=== PATIENT | male | born 1970 | race Caucasian/White ===

== ENCOUNTER 2017-06-11 09:45 | Outpatient (CLI) ==
[2015-10-26 19:48] VITALS: BMI 29.7
[2017-06-11 10:22] LABS: BASOPHILS % (AUTO) 0.5 % (0.0-3.0); EOSINOPHILS # (AUTO) 0.1 K/ul (0.0-0.7); EOSINOPHILS % (AUTO) 1.6 % (0.0-7.0); HEMATOCRIT 43.8 % (42.0-52.0); HEMOGLOBIN 15.2 g/dl (14.0-18.0); IMMATURE GRANULOCYTE % (AUTO) 0.6 % (0.0-5.0); LYMPHOCYTES # (AUTO) 2.7 K/uL (0.60-3.4); LYMPHOCYTES % (AUTO) 33.3 (10.0-50.0); MEAN CORPUSCULAR HEMOGLOBIN 29.6 pg (27.0-31.0); MEAN CORPUSCULAR HGB CONC 34.7 (31.8-35.4); MEAN CORPUSCULAR VOLUME 85.4 fl (80.0-94.0); MONOCYTES # (AUTO) 0.6 K/uL (0.4-2.0); MONOCYTES % (AUTO) 7.2 (0-10); NEUTROPHILS # (AUTO) 4.6 K/ul (2.0-6.9); NEUTROPHILS % (AUTO) 56.8; PLATELET COUNT 275 10^3/uL (140-440); RED BLOOD COUNT 5.13 10^6/ul (4.70-6.10); WHITE BLOOD COUNT 8.11 K/ul (4.2-10.2)
--- NOTE | 2017-06-11 10:29 | DI ---
EXAM: Two views of the chest. History: Abnormal weight gain. Comparison: Chest radiograph 10/26/2015 Findings: Heart size is normal. No focal consolidation. No appreciable pleural fluid and no pneumot horax. No acute osseous abnormalities. Impression: No acute cardiopulmonary process
--- NOTE | 2017-06-11 10:30 | DI ---
EXAM: Four views of the right knee. History: Right knee pain. Findings: No acute fracture or dislocation. 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 Minimal patellar enthesiopathy. Joint spaces are relatively preserved. Impression: No acute osseous abnormality. Other findings as detailed above
--- NOTE | 2017-06-11 10:30 | DI ---
EXAM: Three views of the right foot. History: Right foot pain. Findings: No acute fracture or dislocation. Minimal calcaneal enthesiopathy. Joint spaces are pres erved. There is medial soft tissue prominence at the mid foot. Impression: No acute osseous abnormality. Other findings as detailed above
--- NOTE | 2017-06-11 10:31 | DI ---
EXAM: Three views of the left foot. History: Left foot pain. Findings: No acute fracture or dislocation. Joint spaces are relatively preserved. No abnormal cara cifications or radiopaque foreign bodies. Minimal calcaneal enthesiopathy Impression: No acute osseous abnormality
--- NOTE | 2017-06-11 10:34 | DI ---
EXAM: Five views of the lumbar spine. History: Lower back pain and radiculopathy. Findings: No acute fracture or subluxation of the lumbar spine. Mild multilevel degenerative disc s pace narrowing with a few prominent anterior osteophytes. Surgical clips seen projecting over the ri ght iliac bone. Impression: 1. No acute osseous abnormality. 2. Mild degenerative disc disease
[2017-06-11 10:50] LABS: ERYTHROCYTE SEDIMENTATION RATE 10 mm/hr (0-15); ESR INTERNAL QC INTERNAL QC VALID
[2017-06-11 12:23] LABS: ALBUMIN 3.7 g/dL (3.4-5.0); ALBUMIN/GLOBULIN RATIO 0.93; ANION GAP 16.1; BILIRUBIN,TOTAL 0.63 mg/dL (0.00-1.20); BUN/CREATININE RATIO 20.4; CALCIUM 9.2 mg/dL (8.2-10.2); CHOL/HDL RATIO 5.1 (4.5-6.4); CREATININE 0.98 mg/dL (0.60-1.10); POTASSIUM 4.1 mmol/L (3.5-5.1); TOTAL PROTEIN 7.7 g/dL (6.4-8.2)
== END 2017-06-11 09:46 | disposition home or self-care (01) ==
LOC: RAD 09:45
PROVIDERS: ATTEND Nurse Practitioner Family
DX: G47.00 Insomnia, unspecified (principal); R63.5 Abnormal weight gain; M79.672 Pain in left foot; M79.671 Pain in right foot; M54.17 Radiculopathy, lumbosacral region; M25.561 Pain in right knee; Z87.898 Personal history of other specified conditions
CPT/HCPCS: 36415; 80053; 80061; 84439; 84443; 85025; 85651; 86140; 93005; 93010

== ENCOUNTER 2017-06-13 10:58 | Observation (INO) ==
[2017-06-13] MEDS ORDERED: MORPHINE 2 MG/ML SYRINGE IVP STA (11:08)
[2017-06-13] MEDS ORDERED: ZOFRAN 4 MG/2 ML IVP STA (11:08)
--- NOTE | 2017-06-13 11:10 | ED.PDOC ---
General ED Provider: Dr. CON HERNANDEZ JR Chief Complaint: Non-specific Complaint Stated Complaint: PATIENT STATES THAT HE HAS BEEN EXPERIENCING HYPERTENSION AND WAS SEEN BY HIS PCP. PATIENT WAS GIVEN LISINOPRIL, AND SINCE BEGINNING THE MEDICATION HE HAS HAD SEVERE LEFT ARM PAIN AND FACIAL TINGLING[End]2 days 97.3 77 20 98% 154/102 10/10 ARM PAIN AND FACIAL NUMBNESS[ End ] Time Seen by Physician: 11:10 Mode of Arrival: Walk-In Information Source: Patient Exam Limitations: No limitations Primary Care Provider: [facility] Nursing and Triage Documentation Reviewed and Agree: No Review of Systems - Review Of Systems Constitutional: Reports: Malaise Eyes: Reports: No symptoms Ears, Nose, Mouth, Throat: Reports: No symptoms Respiratory: Reports: No symptoms Cardiac: Reports: Chest pain GI: Reports: No symptoms : Reports: No symptoms Musculoskeletal: Reports: Muscle pain Neurological: Reports: Tingling, Weakness Endocrine: Reports: No symptoms Hematologic/Lymphatic: Reports: No symptoms All Other Systems: Other Past Medical History - Past Medical History Endocrine: Reports: None Cardiovascular: Reports: Hypertension Respiratory: Reports: None Hematological: Reports: None Gastrointestinal: Reports: None Genitourinary: Reports: None Neuro/Psych: Reports: None Musculoskeletal: Reports: None Cancer: Reports: None - Surgical History General Surgical History: Reports: Appendectomy, Orthopedic (RIGHT KNEE) - Family History Family History: Reports: Unknown - Social History Smoking Status: Former smoker Hx Substance Use: No Alcohol Screening: Occasionally - Immunizations Tetanus Shot up to Date: Yes Physical Exam - Physical Exam Appearance: Well-appearing Pain Distress: Mild Eyes: ROLY, EOMI, Conjunctiva clear ENT: Ears normal, Nose normal, Oropharynx normal Neck: Supple Respiratory: Airway patent, Breath sounds clear, Breath sounds equal, Respirations nonlabored Cardiovascular: RRR, Pulses normal, No rub, No murmur GI/: Soft, Nontender, No masses, Bowel sounds normal, No Organomegaly Musculoskeletal: Normal strength, ROM intact, No edema, No calf tenderness Skin: Warm, Dry, Normal color Neurological: Sensation intact, Motor intact, Reflexes intact, Cranial nerves intact, Alert, Oriented Psychiatric: Affect appropriate, Mood appropriate Interpretation - Radiology Interpretation Radiology Interpretation By: Radiologist Radiology Results: Negative Exam Interpreted: CXR Critical Care Note - Critical Care Note Total Time (mins): 10 Course - Course Hematology/Chemistry: 06/13/17 11:25 06/13/17 11:25 Orders, Labs, Meds: Lab Review 06/13/17 06/13/17 06/13/17 11:25 11:25 11:25 WBC 6.59 RBC 4.93 Hgb 14.5 Hct 42.7 MCV 86.6 MCH 29.4 MCHC 34.0 RDW Coeff of [place] 14.0 Plt Count 236 Immature Gran % (Auto) 0.6 Neut % (Auto) 52.1 Lymph % (Auto) 36.4 [place] % (Auto) 8.2 Eos % (Auto) 2.1 Baso % (Auto) 0.6 Immature Gran # (Auto) 0.0 Neut # 3.4 Lymph # 2.4 [place] # 0.5 Eos # 0.1 Baso # 0.0 Sodium 140 Potassium 4.2 Chloride 106 Carbon Dioxide 24 Anion Gap 14.2 BUN 15 Creatinine 0.95 Estimated GFR (MDRD) 85.00 BUN/Creatinine Ratio 15.78 Glucose 98 Calcium 8.7 Total Bilirubin 0.42 AST 24 ALT 37 Alkaline Phosphatase 81 Total Creatine Kinase 102 Troponin I < 0.0100 B-Natriuretic Peptide < 10 Total Protein 7.1 Albumin 3.3 L Globulin 3.8 Albumin/Globulin Ratio 0.87 Orders Category Date Time Status EKG-(ED ONLY) Stat CARDIO 06/13/17 11:09 Completed ED IV/MEDIPORT/POWERPORT .ONCE EMERGENCY 06/13/17 11:08 Active B-TYPE NATRIURETIC PEPTIDE Stat LAB 06/13/17 11:25 Completed CBC W/ AUTO DIFF Stat LAB 06/13/17 11:25 Completed COMPREHENSIVE METABOLIC PANEL Stat LAB 06/13/17 11:25 Completed CREATINE KINASE Stat LAB 06/13/17 11:25 Completed TROPONIN I Stat LAB 06/13/17 11:25 Completed 0.9 % Sodium Chloride [Saline Flush] MEDS 06/13/17 11:08 Active 1 syr IVF PRN PRN Morphine Sulfate [Morphine 2 mg/ml Syringe] MEDS 06/13/17 11:08 Discontinued 2 mg IVP ONCE STA Ondansetron HCl/Pf [Zofran 4 mg/2 ml] MEDS 06/13/17 11:08 Discontinued 4 mg IVP ONCE STA CHEST, 1V AP ONLY Stat RADS 06/13/17 11:[address] HEAD W/O CONTRAST Stat RADS 06/13/17 11:08 Completed Medications Generic Name Dose Route Start Last Admin Trade Name Freq PRN Reason Stop Dose Admin Sodium Chloride 1 syr 06/13/17 11:08 06/13/17 11:45 Saline Flush IVF 1 syr PRN PRN Administration To flush IV Discontinued Medications Generic Name Dose Route Start Last Admin Trade Name Freq PRN Reason Stop Dose Admin Morphine Sulfate 2 mg 06/13/17 11:08 06/13/17 11:39 Morphine 2 Mg/Ml Syringe IVP 06/13/17 11:09 2 mg ONCE STA Administration Ondansetron HCl 4 mg 06/13/17 11:08 06/13/17 11:42 Zofran 4 Mg/2 Ml IVP 06/13/17 11:09 4 mg ONCE STA Administration Vital Signs: Temp Pulse Resp BP Pulse Ox 06/13/17 10:59 97.3 F L 77 20 154/102 H 98 Departure - Departure Time of Disposition: 13:37 Disposition: PLACED OBSERVATION Discharge Problem: Mid sternal chest pain, Anxiety Condition: Good Pt referred to PMD for follow-up: Yes Allergies/Adverse Reactions: Allergies Penicillins Allergy (Unknown, Unverified 06/13/17 11:02) Unknown
--- NOTE | 2017-06-13 12:05 | DI ---
EXAM: Single view of the chest. History: Chest pain. Comparison: Chest radiograph 06/11/2017 Findings: Heart size is normal. No focal consolidation. No appreciable pleural fluid and no pneumo thorax. No acute osseous abnormalities. Calcified granuloma again seen within the left lower lobe. Impression: No acute cardiopulmonary process
--- NOTE | 2017-06-13 12:43 | CT ---
EXAM: CT head without contrast HISTORY: headache COMPARISON: None TECHNIQUE: Serial axial images of the brain were obtained from the skull base to the vertex without IV contrast. FINDINGS: The ventricles, cisterns and sulci are normal. The bermudez-white matter junction is well carl ntained. No midline shift or mass is identified. There is no abnormal intra or extra-axial fluid co llection. The paranasal sinuses and mastoid air cells are clear. The osseous calvarium is intact. IMPRESSION: No acute intracranial abnormality or hemorrhage. If further evaluation is clinically in dicated, MRI may be obtained.
[2017-06-13] MEDS ORDERED: TYLENOL PO PRN (13:39)
[2017-06-13] MEDS ORDERED: FLEXERIL PO PRN (13:41)
[2017-06-13] MEDS ORDERED: SODIUM CHLORIDE 1,000 ML IV SCH (14:00)
[2017-06-13 14:01] VITALS: BMI 32.2
[2017-06-13] MEDS: TOPROL XL PO SCH (16:28)
[2017-06-13] MEDS: LIBRIUM PO SCH (16:29)
[2017-06-13] MEDS: NEURONTIN PO SCH (20:16)
[2017-06-13] MEDS ORDERED: XANAX PO SCH (21:00)
[2017-06-13] MEDS ORDERED: VISTARIL PO SCH (21:00)
[2017-06-13] MEDS ORDERED: HYDROXYZINE PAMOATE 50 MG PO SCH (21:00)
[2017-06-14 06:15] VITALS: BP 124/86; TEMP 98.1
[2017-06-14] MEDS ORDERED: ZESTRIL PO SCH (09:00)
[2017-06-14] MEDS: NEURONTIN PO SCH (09:11)
[2017-06-14] MEDS: TOPROL XL PO SCH (09:11)
[2017-06-14] MEDS: LIBRIUM PO SCH (09:13)
[2017-06-14] MEDS ORDERED: XANAX PO SCH (21:00)
--- NOTE | 2017-06-19 14:58 | HP ---
DATE OF SERVICE: 06/13/17 CHIEF COMPLAINT: Chest pain HISTORY OF PRESENT ILLNESS: This is a 47 year old male who came to the emergency room with the left sided chest tightness. He has been going through a lot of stress. Says that he is and has custody of kids, job isn't going good so getting stressed out so started having midsternal chest pain going to the left arm and left side of the jaw. Came to the emergency room. In the emergency room blood pressure was 154/102 and that time the patient being admitted to the hospital for chest pain and rule out ACS. REVIEW OF SYSTEMS: CONSTITUTIONAL: No fever, no chills. HEENT: Normal. ENDOCRINE: No weight gain; no weight loss. CVS: Left sided chest pain. Tingling in left side of the face. No PND, no orthopnea. No shortness of breath. No PND, no orthopnea. RESPIRATORY: No cough, no congestion. No hemoptysis. GI: No nausea, no vomiting. No abdominal pain. No melena. : No hematuria. No polyuria. MUSCULOSKELETAL: No joint swelling. PSYCHIATRIC: Anxious.Stress out. No depression. No suicidal thoughts. No homicidal thoughts. SKIN: Intact, no open lesions. PAST MEDICAL HISTORY: Hypertension Dyslipidemia Osteoarthritis DJD spine GERD PAST SURGICAL HISTORY: Appendectomy Right knee scope PERSONAL HISTORY: The patient does smoke but does not drink alcohol. Family history is significant for hypertension. MEDICATIONS: Tylenol Zestril Neurontin Vistaril Flexeril Saline flush ALLERGIES: Penicillin PHYSICAL EXAMINATION: V/S: Blood pressure 150/102, respiratory rate 20, heart rate 77 and temperature 97.2 with saturation 98%. HEENT: Atraumatic, normocephalic. No scleral icterus. Pallor . Mucosa . NECK: Supple. No JVD, no bruit. No lymphadenopathy. No thyromegaly. HEART: S1, S2 normal. No murmur. No cyanosis or clubbing. No ascites. LUNGS: Clear to auscultation. No rales or rhonchi. ABDOMEN: Soft, nontender. Bowel sounds are active. No CVA tenderness. No rigidity or guarding. EXTREMITIES: No cyanosis, clubbing or pedal edema. MUSCULOSKELETAL: Normal joints, no swelling. NEUROLOGIC: The patient is SKIN: Intact; no open lesions. LYMPHATIC: No lymph nodes palpable. LABS: WBC 6.59, hgb 14.5, hct 42.7,. plt count 236, sodium 141, potassium 4.2, chloride 106, bicarb 24, BUN 15, creatinine 0.95, glucose 98. First set of cardiac enzymes are negative. BNP is negative. ASSESSMENT: 1. Chest pain rule out ACS 2. Hypertension, uncontrolled 3. Dyslipidemia 4. Anxiety 5. Osteoarthritis PLAN: 1. Admit the patient to the observation for chest pain 2. TSH and Lipids 3. Cardiology consult with Dr. Julian 4. Librium 25mg twice a day 5. Ativan 1mg IV push for night for the sleep TIME SPENT: MORE THAN 55 minutes MTDD
--- NOTE | 2017-08-02 13:55 | DS ---
DATE OF SERVICE: 06/14/17 FINAL DIAGNOSIS: 1. HYPERTENSION, UNCONTROLLED 2. STATUS POST PANIC ATTACK 3. MIDSTERNAL CHEST PAIN 4. ANXIETY, MOSTLY WORSE LATELY BECAUSE OF FAMILY ISSUES 5. MILD DJD DISC DISEASE, L SPINE 6. APPENDECTOMY 7. FORMER SMOKER 8. OCCASIONAL ALCOHOL 9. DYSLIPIDEMIA DISCHARGE INSTRUCTIONS: 1. Follow up at the [facility] on 06/18/2017. 2. Resume home medications. 3. Do not take your Hydroxyzine or Lisinopril. 4. New medications: Librium 25 mg twice a day Metoprolol Succinate once a day 5. Get plenty of rest. 6. Diet: Low carb diet. High protein diet. 7. Activity: As much as tolerated. DISEASE SPECIFIC EDUCATION: Anxiety attacks, hypertension and risk of stroke have been discussed and he verbalized understanding. HOSPITAL COURSE: Cornelius Guillory, who is a 47 year old male, came to the emergency room for hypertension, which was uncontrolled. Left arm and left facial tingling. He came to the emergency room and his blood pressure was 154/ 102. EKG was normal sinus rhythm. LISA score was one. Because of uncontrolled hypertension, CT of the head was done, which was negative for the stroke. Chest x-ray was negative. He was admitted to the hospital for uncontrolled hypertension. He was started on Librium. Morphine was given for some pain. Continued the Neurontin 100 mg twice daily. IV fluids. Metoprolol succinate 25 mg daily. With the given treatment, the patient was feeling better. Blood pressure came down to 121/81 and 111/72. He was up and about walking. Three sets of cardiac enzymes were negative. The patient's mother was in the hospital with the patient. She was telling that the patient has been going through a lot of stress because of the children, the family and divorce and separation with the . The patient has not been taking care of himself properly. The episode was treated as uncontrolled hypertension and panic attack. Meanwhile, the patient is up and about walking and did not have any problems with the Metoprolol twice a day the blood pressure was controlled good. The patient was advised to continue the same medication. Metoprolol succinate 25 mg daily and Neurontin 100 mg twice daily, which was continued. Keep checking the blood pressure. Risk of stroke was discussed and he verbalized understanding. TIME SPENT: MORE THAN 65 MINUTES MTDD
== END 2017-06-14 09:40 | disposition home or self-care (01) ==
LOC: ED 10:58 → MEDSURG B 13:13
PROVIDERS: ADMIT Emergency Medicine; ATTEND Emergency Medicine
DX: I10 Essential (primary) hypertension (principal); R07.89 Other chest pain; F41.9 Anxiety disorder, unspecified; F43.9 Reaction to severe stress, unspecified; R20.2 Paresthesia of skin; F41.0 Panic disorder [episodic paroxysmal anxiety]; M47.896 Other spondylosis, lumbar region; E78.5 Hyperlipidemia, unspecified; Z87.891 Personal history of nicotine dependence; Z72.89 Other problems related to lifestyle; Z79.899 Other long term (current) drug therapy
CPT/HCPCS: 36415; 80053; 82550; 83880; 84484; 85025; 93005; 93010; 96375; 99285

== ENCOUNTER 2017-07-11 11:23 | Outpatient (CLI) ==
--- NOTE | 2017-07-11 11:46 | DI ---
EXAM: Right elbow three-view HISTORY: Pain in right elbow COMPARISON: None FINDINGS: No fracture or dislocation. The alignment is normal. No joint effusion. Moderate to bulky olecranon enthesopathy. IMPRESSION: 1. No fracture or dislocation. 2. Moderate to bulky olecranon enthesopathy.
== END 2017-07-11 11:24 | disposition home or self-care (01) ==
LOC: RAD 11:23
PROVIDERS: ATTEND Nurse Practitioner Family
DX: M25.521 Pain in right elbow (principal)

== ENCOUNTER 2017-07-12 12:14 | Outpatient (CLI) ==
--- NOTE | 2017-07-12 13:33 | MRI ---
EXAM: MRI lumbar spine without IV contrast. DATE: 12 July 2017. HISTORY: Lumbar degenerative disc disease. TECHNIQUE: Sagittal and axial T1W and T2W sequences of the lumbar spine along with sagittal IR and c oronal T2W sequences were obtained using 1.2 Jackelin magnet. No IV contrast. COMPARISON: LS spine series 11 June 2017. PA/lateral chest 11 June 2017. FINDINGS: There are five [id number] lumbar vertebra. No lumbar scoliosis is evident. A 2.2 mm anterior subluxation of S1 relative to L5 is noted. No other subluxation, acute fracture, osseous m alignancy, or pars interarticularis defect is demonstrated. Lumbar vertebra are normal in height. M inor anterior wedge configuration of the T12 vertebral body is chronic and may be a normal variation. Bone marrow signal is normal. Prominent anterior osteophytes seen at L3-4. Minor disc space narro wing is detected at L4-5. Remaining intervertebral discs are normal in height. No sacral fracture o r stress reaction is identified. SI joints are grossly normal. Conus medullaris terminates at L1-2. Visible spinal cord is normal. No retroperitoneal lymphadenopathy, paraspinal mass, or aortic aneurysm is detected. Paraspinal musc ulature is symmetric bilaterally. Visible portions of the liver, spleen, adrenal glands and right ki dney reveal no abnormality. A T2W bright, T1W dark, 4 mm focus in the posteromedial cortex upper alex e left kidney is likely a benign cyst, but is too small to fully characterize. Segmental analysis: T12-L1: Normal. L1-2: Normal. L2-3: Normal. L3-4: Normal. L4-5: Normal, except for minor bilateral inferior foraminal encroachment due to minor facet arthropa thy. L5-S1: Minor anterior subluxation of S1, tiny pseudodisc bulge, and minimal facet disease cause mild right and slight left foraminal narrowing. Each L5 nerve root appears to contact the disc bulge alta r the lateral margin of the foramen. No central canal stenosis. IMPRESSIONS: 1. Lumbar spine mild spondylosis, minor facet arthropathy, and minor DDD 2. L5-S1 mild right and minor left foraminal narrowing, with each L5 nerve root contacting the disc bulge near its foramen - - may be a source for pain/radiculopathy. 3. No lumbar spine central canal stenosis 4. Left kidney probable benign cyst (4 mm).
== END 2017-07-12 12:15 | disposition home or self-care (01) ==
LOC: RAD 12:14
PROVIDERS: ATTEND Nurse Practitioner Family
DX: M51.36 Other intervertebral disc degeneration, lumbar region (principal)

== ENCOUNTER 2017-07-15 09:04 | Outpatient (CLI) ==
--- NOTE | 2017-07-15 10:56 | MRI ---
EXAM: MRI right knee without contrast COMPARISON: Right knee radiographs 06/11/2017. HISTORY: Acute right knee pain. Old injury. Previous arthroscopic surgery. TECHNIQUE: Multiplanar noncontrast MR images of the right knee were acquired using a 1.2 Jackelin magne t. FINDINGS: The medial and lateral menisci are intact without identification of a surfacing meniscal t ear. No parameniscal cyst. Inversion recovery hyperintense signal throughout the substance of the anterior cruciate ligament tho ugh intact fibers are identified suggesting mucoid degeneration versus sequela of a sprain/partial te ar. Intact ligament fibers are identified. 1.5 x 0.8 x 0.6 cm T2 hyperintense focus along the poste rior aspect of the intercondylar notch suggesting a ganglion/synovial cyst. The posterior cruciate l igament Is intact. Medial collateral ligament, lateral collateral ligament complex and posterolatera l corner ligaments are intact. Moderately severe distal quadriceps tendinosis with a 6 mm superior p atellar spur. Moderately severe distal patellar tendinosis. 1.6 x 0.7 cm well corticated ossificati on of the tibial tuberosity attachment of the patellar tendon related to a chronic sequela of Dante- Schlatter's disease versus sequela of an old avulsion fracture. Secondary degenerative changes betwe en the ossification and proximal tibia with marrow edema throughout the ossicle which may represent r eactive edema/stress reaction or contusion. There is edema throughout the anterior subcutaneous tiss ues without a drainable fluid collection. Chondromalacia patella. No full-thickness cartilage defect. No evidence of an acute fracture or ost eomyelitis. Minimal joint effusion. Slit-like popliteal cyst. No osteochondral body or soft tissue mass identified. IMPRESSION: 1. Moderately severe patellar/quadriceps tendinosis and enthesopathy. Well corticated ossification along the tibial tuberosity attachment of the patellar tendon suggesting chronic sequela of Dante-Sc hlatter's disease versus sequela of an old avulsion injury. There are secondary degenerative changes between the ossicle and proximal tibia as well as marrow edema throughout the ossification which may represent reactive edema/stress reaction or contusion without acute fracture. There is subcutaneous edema throughout the overlying soft tissues without a drainable fluid collection. Correlate with si te of pain. 2. Intact menisci. 3. Mucoid degeneration versus sequela of previous sprain/partial tear of the anterior cruciate ligam ent with intact ligament fibers clearly identified. 4. Chondromalacia patella. 5. Minimal joint effusion. Slit-like popliteal cyst.
== END 2017-07-15 09:05 | disposition home or self-care (01) ==
LOC: RAD 09:04
PROVIDERS: ATTEND Nurse Practitioner Family
DX: M25.561 Pain in right knee (principal)

== ENCOUNTER 2017-09-16 16:21 | Outpatient (CLI) | END 2017-09-16 16:22 | disposition home or self-care (01) | LOC: FCC-LAB 16:21 | PROVIDERS: ATTEND Nurse Practitioner Family | DX: F41.9 Anxiety disorder, unspecified (principal); I10 Essential (primary) hypertension; Z79.899 Other long term (current) drug therapy | CPT/HCPCS: 36415; 80053; 80306; 81001; 85025 ==

== ENCOUNTER 2017-10-17 08:46 | Outpatient (CLI) | END 2017-10-17 08:47 | disposition home or self-care (01) | LOC: LAB 08:46 | PROVIDERS: ATTEND Physical Medicine & Rehabilitation | DX: L40.50 Arthropathic psoriasis, unspecified (principal) | CPT/HCPCS: 36415; 80053; 82306; 84443; 85025; 85651; 86038; 86430 ==

== ENCOUNTER 2017-12-12 10:06 | Outpatient (CLI) | END 2017-12-12 10:07 | disposition home or self-care (01) | LOC: FCC-LAB 10:06 | PROVIDERS: ATTEND Nurse Practitioner Family | DX: E75.6 Lipid storage disorder, unspecified (principal); I10 Essential (primary) hypertension | CPT/HCPCS: 36415; 80053; 80061 ==

== ENCOUNTER 2017-12-25 08:38 | Outpatient (CLI) | payer OTHER ==
--- NOTE | 2017-12-25 11:22 | US ---
Exam: Jara-scale and color ultrasonographic evaluation of the kidneys and urinary bladder. Comparison: None available. Reason for exam: Primary hypertension. FINDINGS: The right kidney measures approximately 9.5 x 4.5 x 4.2 cm with normal appearing echotextu re, no hydronephrosis, and no nephrolithiasis. The left kidney measures approximately 11.6 x 4.7 x 4.5 cm without hydronephrosis or nephrolithiasis. In the midportion of the left kidney there is a solid appearing 1.8 x 1.7 x 2.8 cm area of heterogene ous appearing cortex versus parenchymal nodularity with internal vascularity. The bladder appears grossly unremarkable although evaluation is limited by non distension. Ureteral jets were not seen on the exam. Impression: Heterogeneous appearing cortex in the left mid kidney versus a 2.8 cm parenchymal nodule. Imaging fi ndings can be seen with lobulated parenchyma and neoplasia. Further evaluation is recommended. Report faxed at [phone] hours on 12/25/2017.
== END 2017-12-25 08:39 | disposition home or self-care (01) ==
LOC: RAD 08:38
PROVIDERS: ATTEND Nurse Practitioner Family
DX: I10 Essential (primary) hypertension (principal)
CPT/HCPCS: 76770

== ENCOUNTER 2018-01-02 09:06 | Emergency (ER) ==
[2018-01-02 09:18] VITALS: BP 139/94; TEMP 97.7; BMI 33.3
--- NOTE | 2018-01-02 09:53 | ED.PDOC ---
General ED Provider: Dr. BURTON NINA Chief Complaint: Elbow Pain/Injury Stated Complaint: Elbow pain. States has noted a justina prominence on Rt Elbow for some time and last evening was in bed, resting on side and when attempting to turn over, lifted self on elbow, felt popping sensation associated with severe pain. Awakended this morning and elbow was painful plus hand felt cool. Time Seen by Physician: 09:20 Mode of Arrival: Walk-In Information Source: Patient, Family Exam Limitations: No limitations [facility] and Triage Documentation Reviewed and Agree: Yes Does patient meet sepsis criteria?: No System Inflammatory Response Syndrome: Not Applicable Sepsis Protocol: For patient's 13 years and over: Temp is 96.8 and below OR 101 and greater Pulse >90 BPM Resp >20/minute Acutely Altered Mental Status Are patient's symptoms suggestive of a new infection, such as: -Pneumonia -Skin, Soft Tissue -Endocarditis -UTI -Bone, Joint Infection -Implantable Device -Acute Abdominal Infection -Wound Infection -Meningitis -Blood Stream Catheter Infection -Unknown Musculoskeletal Complaint Exam - Elbow Pain Complaint/Exam Mechanism of Injury: Reports: No known trauma Onset/Duration: 12 hrs Symptoms Are: Still present Onset of Pain: Reports: Immediate Initial Severity: Moderate Current Severity: Mild Location: Reports: Discrete Character: Reports: Sharp, Aching, Stiffness Alleviating: Reports: Rest Aggravating: Reports: Movement, Twisting, Pulling Associated Signs and Symptoms: Reports: Swelling Related History: Reports: Similar episode Related Surgical History: Reports: None Elbow Findings: Present: Swelling (minimal, tenderness over posterior olecranon) . Absent: Abnormal contour, Rotation, Ligamentous instability, Laceration, Warmth, Other joint pain Tenderness: Present: Olecranon Limited Range of Motion: Present: Extension (minimal restricted to passive full rom, active ROM complete) Differential Diagnoses: Joint Effusion, Strain, Bursitis Review of Systems - Review Of Systems Constitutional: Reports: No symptoms Eyes: Reports: No symptoms Ears, Nose, Mouth, Throat: Reports: No symptoms Respiratory: Reports: No symptoms Cardiac: Reports: No symptoms GI: Reports: No symptoms : Reports: No symptoms Musculoskeletal: Reports: No symptoms, Joint pain Skin: Reports: No symptoms Neurological: Reports: No symptoms Endocrine: Reports: No symptoms Hematologic/Lymphatic: Reports: No symptoms All Other Systems: Reviewed and Negative Past Medical History - Past Medical History Endocrine: Reports: None Cardiovascular: Reports: Hypertension Respiratory: Reports: None Hematological: Reports: None Gastrointestinal: Reports: None Genitourinary: Reports: None Neuro/Psych: Reports: None Musculoskeletal: Reports: None Cancer: Reports: None - Surgical History General Surgical History: Reports: Appendectomy, Orthopedic (RIGHT KNEE) - Family History Family History: Reports: Unknown - Social History Smoking Status: Former smoker Hx Substance Use: No Alcohol Screening: Occasionally - Immunizations Tetanus Shot up to Date: Yes Physical Exam - Physical Exam Appearance: Well-appearing Ill-appearing: None Pain Distress: Mild Eyes: ROLY, EOMI, Conjunctiva clear ENT: Ears normal, Nose normal, Oropharynx normal Respiratory: Airway patent, Breath sounds clear, Breath sounds equal, Respirations nonlabored Cardiovascular: RRR, Pulses normal, No rub, No murmur GI/: Soft, Nontender, No masses, Bowel sounds normal, No Organomegaly Musculoskeletal: Normal strength, Limited ROM, Limited strength, Edema (minimal over olecranon-lat epicondylar region ) Neurological: Sensation intact, Motor intact, Cranial nerves intact, Alert, Oriented, Alert to verbal Psychiatric: Affect appropriate, Mood appropriate, Anxious Interpretation - Radiology Interpretation Radiology Interpretation By: Radiologist Radiology Results: No acute changes Exam Interpreted: CT Scan, Other (No fracture) Critical Care Note - Critical Care Note Total Time (mins): 0 Course - Course Orders, Labs, Meds: Orders Category Date Time Status Ketorolac Tromethamine [Toradol] MEDS 01/02/18 11:10 Discontinued 30 mg IM ONCE STA CT ELBOW RIGHT WO CONTRAST Stat RADS 01/02/18 09:47 Completed Medications Discontinued Medications Generic Name Dose Route Start Last Admin Trade Name Freq PRN Reason Stop Dose Admin Ketorolac Tromethamine 30 mg 01/02/18 11:10 Toradol IM 01/02/18 11:11 ONCE STA Vital Signs: Temp Pulse Resp BP Pulse Ox 01/02/18 09:12 97.7 F 125 H 18 139/94 H 96 Departure - Departure Time of Disposition: 11:25 Disposition: HOME SELF-CARE Discharge Problem: Elbow contusion, Strain of elbow and forearm Instructions: Elbow Sprain (ED) Condition: Good Pt referred to PMD for follow-up: Yes (See social security specialist in next week ) IPMP verified?: No Additional Instructions: Geovani wrap SLing to reduce discomfort Early mobilization Ice pack or massage for 20 minutes 3 times daily If symptoms worsen return to ER Allergies/Adverse Reactions: Allergies Penicillins Allergy (Unknown, Verified 01/02/18 11:21) Unknown Home Medications: Ambulatory Orders Cyclobenzaprine HCl 10 mg PO BID 12/12/17 Hydrocodone/Acetaminophen [[place] 5-325 Tablet] 1 each PO BID 12/12/17 Ketorolac Tromethamine [Toradol] 10 mg PO Q6H PRN #20 tablet 01/02/18 Disposition Discussed With: Patient, Family
--- NOTE | 2018-01-02 10:38 | CT ---
EXAM: CT right elbow without contrast HISTORY: Pain and swelling after feeling a pop. COMPARISON: Right elbow x-ray 07/11/2017 TECHNIQUE: Serial axial images of the right elbow were performed without contrast. These were viewe d in multiple planes. FINDINGS: The humerus, radius and ulna demonstrate no cortical irregularity or displaced fracture. J oint spaces are maintained. There is normal articulation of the radial head and the capitellum. The re is an osteophyte of the olecranon. There is no lytic or blastic lesion. The musculature is normal . There is subcutaneous ground-glass overlying the region of the olecranon osteophyte. There is no effusion. IMPRESSION: 1. No displaced fracture or dislocation of the right elbow. 2. Osteophyte of the olecranon. 3. Nonspecific subcutaneous ground-glass overlying the olecranon that may represent post traumatic v ersus nonspecific inflammation versus edema.
[2018-01-02] MEDS ORDERED: TORADOL IM STA (11:10)
== END 2018-01-02 11:50 | disposition home or self-care (01) ==
LOC: ED 09:06
DX: S50.01XA Contusion of right elbow, initial encounter (principal); S56.912A Strain of unspecified muscles, fascia and tendons at forearm level, left arm, initial encounter; X50.1XXA Overexertion from prolonged static or awkward postures, initial encounter
CPT/HCPCS: 96372; 99282

== ENCOUNTER 2018-07-21 13:01 | Emergency (ER) | payer MEDICAID, OTHER ==
[2018-07-21 13:22] VITALS: BP 157/119; TEMP 97.3; BMI 38.7
[2018-07-21] MEDS ORDERED: XANAX PO STA (13:36)
--- NOTE | 2018-07-21 13:44 | DI ---
EXAM: Single view of the chest. History: Chest pain. Comparison: Chest radiograph 06/13/2017 Findings: Heart size is within normal limits. No focal consolidation. No appreciable pleural fluid and no pneumothorax. No acute osseous abnormalities. Calcified granulomas are again seen within th e thorax. Impression: No acute cardiopulmonary process
--- NOTE | 2018-07-21 14:19 | CT ---
EXAM: CT of the left hand without contrast History: Left hand and thumb pain. Technique: Multiplanar CT images through the left hand were obtained without the administration of I V contrast Findings: No acute fracture or dislocation. No abnormal calcifications or radiopaque foreign bodies . Joint spaces are relatively preserved. No erosive osseous changes. There is subcutaneous edema a long the radial aspect of the wrist and surrounding the adjacent tendinous structures. Impression: 1. No acute osseous abnormality. 2. Subcutaneous edema along the radial aspect of the wrist. If symptoms persist, recommend correlat ion with MRI.
--- NOTE | 2018-07-21 15:04 | ED.PDOC ---
General ED Provider: Dr. RODRIGO ARRIAGA Chief Complaint: Hypertension Stated Complaint: HYPERTENSION HAS HAD A LEFT HAND INJURY WOULD LIKE TO CHECK THAT OUT TOO Time Seen by Physician: 13:19 (NO CHEST PAIN REPORTED R.N ) Mode of Arrival: Walk-In Information Source: Patient, Family Exam Limitations: No limitations Primary Care Provider: SALONI LOUISE Nursing and Triage Documentation Reviewed and Agree: Yes Does patient meet sepsis criteria?: No System Inflammatory Response Syndrome: Not Applicable Sepsis Protocol: For patient's 13 years and over: Temp is 96.8 and below OR 101 and greater Pulse >90 BPM Resp >20/minute Acutely Altered Mental Status Are patient's symptoms suggestive of a new infection, such as: -Pneumonia -Skin, Soft Tissue -Endocarditis -UTI -Bone, Joint Infection -Implantable Device -Acute Abdominal Infection -Wound Infection -Meningitis -Blood Stream Catheter Infection -Unknown Cardiovascular Complaint Exam - Hypertension Complaint/Exam Onset/Duration: TODAY Symptoms Are: Still present Timing: Intermittent Reported B/P Prior to Arrival: 150 Aggravating: Reports: None Alleviating: Reports: None Associated Signs and Symptoms: Denies: Chest pain, Vision changes, Anxiety, Recent stress, Headache, Numbness, Tingling, Weakness, Dizziness, Short of air, Swelling Related History: Reports: Similar episode Related Surgical History: Reports: None Cardiac Risk Factors: Reports: Hypertension Recent Change in Medications: No A/V [place]: No Papilledema Present: No JVD Present: No Carotid Bruit Present: No Femoral Pulses Bounding: No Differential Diagnoses: Hypertension Quality Indicator For Non-Traumatic Chest Pain/Syncope: EKG Performed Review of Systems - Review Of Systems Constitutional: Reports: No symptoms Eyes: Reports: No symptoms Ears, Nose, Mouth, Throat: Reports: No symptoms Respiratory: Reports: No symptoms Cardiac: Reports: No symptoms GI: Reports: No symptoms : Reports: No symptoms Musculoskeletal: Reports: Joint pain (LEFT HAND PAIN) Skin: Reports: No symptoms Neurological: Reports: No symptoms Endocrine: Reports: No symptoms Hematologic/Lymphatic: Reports: No symptoms All Other Systems: Reviewed and Negative Past Medical History - Past Medical History Previously Healthy: Yes Endocrine: Reports: None Cardiovascular: Reports: Hypertension Respiratory: Reports: None Hematological: Reports: None Gastrointestinal: Reports: None Genitourinary: Reports: None Neuro/Psych: Reports: None Musculoskeletal: Reports: None Cancer: Reports: None - Surgical History General Surgical History: Reports: Appendectomy, Orthopedic (RIGHT KNEE) - Family History Family History: Reports: Unknown - Social History Smoking Status: Former smoker Hx Substance Use: No Alcohol Screening: Occasionally Physical Exam - Physical Exam Appearance: Well-appearing, No pain distress, Well-nourished Eyes: ROLY, EOMI, Conjunctiva clear ENT: Ears normal, Nose normal, Oropharynx normal Respiratory: Airway patent, Breath sounds clear, Breath sounds equal, Respirations nonlabored Cardiovascular: RRR, Pulses normal, No rub, No murmur GI/: Soft, Nontender, No masses, Bowel sounds normal, No Organomegaly Musculoskeletal: Normal strength, ROM intact, No edema, No calf tenderness Skin: Warm, Dry, Normal color Neurological: Sensation intact, Motor intact, Reflexes intact, Cranial nerves intact, Alert, Oriented Psychiatric: Affect appropriate, Mood appropriate Interpretation - Radiology Interpretation Radiology Interpretation By: Radiologist Radiology Results: Negative - Chief Vendor Quality Rate: Normal Rhythm: Sinus - EKG Interpretation Rate: Normal Rhythm: Sinus Ectopy: None Cutler: NL ST Segment: Normal Critical Care Note - Critical Care Note Total Time (mins): 0 Course - Course Hematology/Chemistry: 07/21/18 13:30 07/21/18 13:30 Orders, Labs, Meds: Lab Review 07/21/18 07/21/18 07/21/18 13:30 13:30 14:00 WBC 8.76 RBC 5.31 Hgb 15.3 Hct 46.1 MCV 86.8 MCH 28.8 MCHC 33.2 RDW Coeff of [place] 14.0 Plt Count 255 Immature Gran % (Auto) 0.5 Neut % (Auto) 66.1 Lymph % (Auto) 23.6 [place] % (Auto) 8.2 Eos % (Auto) 1.3 Baso % (Auto) 0.3 Immature Gran # (Auto) 0.0 Neut # (Auto) 5.8 Lymph # (Auto) 2.1 [place] # (Auto) 0.7 Eos # (Auto) 0.1 Baso # (Auto) 0.0 Sodium 135.3 Potassium 4.04 Chloride 103.0 Carbon Dioxide 26.7 Anion Gap 9.64 BUN 19.9 Creatinine 1.05 Estimated GFR (MDRD) 75.00 BUN/Creatinine Ratio 18.95 Glucose 114.1 H Calcium 9.48 Total Bilirubin 0.70 AST 49.8 ALT 63.8 H Alkaline Phosphatase 103.7 Total Creatine Kinase 212.3 H CK-MB (CK-2) 1.670 CK-MB (CK-2) % 0.7800 Troponin I < 0.012 Total Protein 7.72 Albumin 4.44 Globulin 3.28 Albumin/Globulin Ratio 1.35 Urine Color Urine Clarity Urine pH Ur Specific [place] Urine Protein Urine Glucose (UA) Urine Ketones Urine Blood Urine Nitrite Urine Bilirubin Urine Urobilinogen Ur Leukocyte Esterase Urine Microscopic RBC Ur Squamous Epith Cells Urine Bacteria Urine Opiates Screen Negative Ur Oxycodone Screen Negative Urine Methadone Screen Negative Ur Propoxyphene Screen Negative Ur Barbiturates Screen Negative U Tricyclic Antidepress Positive Ur Phencyclidine Scrn Negative Ur Amphetamine Screen Negative U Methamphetamines Scrn Negative U Benzodiazepines Scrn Positive Urine Cocaine Screen Negative U Cannabinoids Screen Negative 07/21/18 14:00 WBC RBC Hgb Hct MCV MCH MCHC RDW Coeff of [place] Plt Count Immature Gran % (Auto) Neut % (Auto) Lymph % (Auto) [place] % (Auto) Eos % (Auto) Baso % (Auto) Immature Gran # (Auto) Neut # (Auto) Lymph # (Auto) [place] # (Auto) Eos # (Auto) Baso # (Auto) Sodium Potassium Chloride Carbon Dioxide Anion Gap BUN Creatinine Estimated GFR (MDRD) BUN/Creatinine Ratio Glucose Calcium Total Bilirubin AST ALT Alkaline Phosphatase Total Creatine Kinase CK-MB (CK-2) CK-MB (CK-2) % Troponin I Total Protein Albumin Globulin Albumin/Globulin Ratio Urine Color Yellow Urine Clarity Clear Urine pH 6.5 Ur Specific [place] 1.025 Urine Protein Trace Urine Glucose (UA) Negative Urine Ketones Negative Urine Blood Negative Urine Nitrite Negative Urine Bilirubin Negative Urine Urobilinogen 0.2 Ur Leukocyte Esterase Negative Urine Microscopic RBC 0-2 Ur Squamous Epith Cells Not present Urine Bacteria Trace Urine Opiates Screen Ur Oxycodone Screen Urine Methadone Screen Ur Propoxyphene Screen Ur Barbiturates Screen U Tricyclic Antidepress Ur Phencyclidine Scrn Ur Amphetamine Screen U Methamphetamines Scrn U Benzodiazepines Scrn Urine Cocaine Screen U Cannabinoids Screen Orders Category Date Time Status EKG-(ED ONLY) Stat CARDIO 07/21/18 13:20 Completed ED IV/MEDIPORT/POWERPORT .ONCE EMERGENCY 07/21/18 13:20 Active CBC W/ AUTO DIFF Stat LAB 07/21/18 13:30 Completed COMPREHENSIVE METABOLIC PANEL Stat LAB 07/21/18 13:30 Completed CREATINE KINASE Stat LAB 07/21/18 13:30 Completed DRUG SCREEN-INPATIENT [DRUG SCREEN, URINE, RAPID] Stat LAB 07/21/18 14:00 Completed TROPONIN I Stat LAB 07/21/18 13:30 Completed UA [URINALYSIS C & S IF INDICATED] Stat LAB 07/21/18 14:00 Completed 0.9 % Sodium Chloride [Saline Flush] MEDS 07/21/18 13:19 Active 1 syr IVF PRN PRN Alprazolam [Xanax] MEDS 07/21/18 13:36 Discontinued 0.5 mg PO ONCE STA CHEST, 1V AP ONLY Stat RADS 07/21/18 13:[address] HAND LEFT WITHOUT CONTRAST Stat RADS 07/21/18 13:27 Completed Medications Generic Name Dose Route Start Last Admin Trade Name Freq PRN Reason Stop Dose Admin Sodium Chloride 1 syr 07/21/18 13:19 Saline Flush IVF PRN PRN To flush IV Discontinued Medications Generic Name Dose Route Start Last Admin Trade Name Freq PRN Reason Stop Dose Admin Alprazolam 0.5 mg 07/21/18 13:36 07/21/18 13:41 Xanax PO 07/21/18 13:37 0.5 mg ONCE STA Administration Vital Signs: Temp Pulse Resp BP Pulse Ox 07/21/18 13:17 97.3 F L 94 H 19 157/119 H 94 L LISA Risk Score LISA Risk Score: Risk Score Odds of by 30D 0 0.1 (0.1-0.2) 1 0.3 (0.2-0.3) 2 0.4 (0.3-0.5) 3 0.7 (0.6-0.9) 4 1.2 (1.0-1.5) 5 2.2 (1.9-2.6) 6 3.0 (2.5-3.6) 7 4.8 (3.8-6.1) Departure - Departure Time of Disposition: 15:06 Disposition: HOME SELF-CARE Discharge Problem: Hypertension Instructions: Hypertension (ED) Condition: Good Pt referred to PMD for follow-up: Yes IPMP verified?: No Additional Instructions: Please call your Family Physician as soon as possible to schedule a follow-up appointment. Allergies/Adverse Reactions: Allergies Penicillins Allergy (Unknown, Verified 07/21/18 13:13) Unknown ketorolac [From Toradol] Adverse Reaction (Verified 07/21/18 13:13) Swelling Home Medications: Ambulatory Orders Cyclobenzaprine HCl 10 mg PO BID 12/12/17 Hydrocodone/Acetaminophen [[place] 5-325 Tablet] 1 each PO BID 12/12/17 Alprazolam 0.5 mg PO TID #90 tab-cap 06/10/18 Amitriptyline HCl 50 mg PO DAILY #30 tab-cap 06/10/18 Metoprolol [place]/Hydrochlorothiaz [Metoprolol ER-Hctz 50-12.5 mg] 1 each PO DAILY 07/21/18
[2018-07-21] MEDS ORDERED: ZESTRIL PO STA (15:07)
== END 2018-07-21 16:24 | disposition home or self-care (01) ==
LOC: ED 13:01
DX: I10 Essential (primary) hypertension (principal); S69.92XA Unspecified injury of left wrist, hand and finger(s), initial encounter
CPT/HCPCS: 36415; 80053; 80306; 81001; 82550; 82553; 84484; 85025; 93005; 93010; 99283

== ENCOUNTER 2018-07-25 11:40 | Outpatient (CLI) | END 2018-07-25 11:41 | disposition home or self-care (01) | LOC: RHC-LAB 11:40 → LAB 11:41 | PROVIDERS: ATTEND Family Medicine | DX: M51.36 Other intervertebral disc degeneration, lumbar region (principal) | CPT/HCPCS: 36415; 81374 ==

== ENCOUNTER 2018-08-21 13:55 | Outpatient (CLI) | END 2018-08-21 13:56 | disposition home or self-care (01) | LOC: RHC-LAB 13:55 | PROVIDERS: ATTEND Nurse Practitioner Family | DX: R73.9 Hyperglycemia, unspecified (principal); E78.5 Hyperlipidemia, unspecified | CPT/HCPCS: 36415; 80053; 80061; 83036 ==